=== PATIENT | female | born 1940 | race African-American/Black ===

== ENCOUNTER 2018-05-05 19:53 | Inpatient (IN) | payer MEDICARE ==
[~2018-05-05] VITALS: Ht 165.1 cm; Wt 65.8 kg
[~2018-05-05 19:53] MED LIST: AMLO1TAB5 MT; ASPI-1159 PO; ATEN50TA MT; BRIM10DR2 EACHEYE; CALC-899 MT; CHOL200074 MT; INSU100I28 SQ; INSU100V9 SQ; LACT1CAP68 MT; MELO-106 MT; MULT-1203 MT; POT CHLOR PO; RAMI5CAP13 MT; THYROXINE; TORS10TA17 MT; TRAMADOL/APAP; VITA400C19 MT; WELC MT; ZET10 MT; [UNRECOGNIZED DRUG - OTHER]; [UNRECOGNIZED DRUG - OTHER]
[2018-05-05 20:00] VITALS: BP 139/71
[2018-05-05 21:00] VITALS: BP 139/71
[2018-05-05] MEDS ORDERED: DEXTROSE 50% WATER 50ML SYRINGE IV PRN (22:00)
[2018-05-05] MEDS: INSULIN GLARGINE UD 100 UNITS/ML SYR SUBCUT SCH (23:00)
[2018-05-05] MEDS ORDERED: NA PHOS,M-B/NA PHOS,DI-BA ENEMA 118ML PR PRN (23:15)
[2018-05-05] MEDS ORDERED: ONDANSETRON HCL 4MG/2ML VIAL IV PRN (23:15)
[2018-05-05] MEDS ORDERED: IPRATROPIUM/ALBUTEROL 0.5-3(2.5)MG/3ML NEB HHN PRN (23:15)
[2018-05-06] MEDS ORDERED: RACEPINEPHRINE 2.25% 0.5ML NEB VIAL HHN PRN (01:00)
[2018-05-06] MEDS ORDERED: PHENOL/SODIUM PHENOLATE 1.4% SRPAY 177ML MM PRN (01:00)
[2018-05-06] MEDS: IPRATROPIUM/ALBUTEROL 0.5-3(2.5)MG/3ML NEB HHN SCH ×4 (01:00→20:46)
[2018-05-06] MEDS ORDERED: VANCOMYCIN 1 G PREMIX 200 ML IV SCH (04:00)
[2018-05-06] MEDS: BLOOD SUGAR DIAGNOSTIC STRIP TEST SCH ×4 (06:21→21:08)
[2018-05-06] MEDS ORDERED: CALC-899 MT (07:38)
[2018-05-06] MEDS ORDERED: LACT1CAP68 MT (07:38)
[2018-05-06] MEDS ORDERED: WELC MT (07:38)
[2018-05-06] MEDS ORDERED: TORS10TA17 PO (07:38)
[2018-05-06] MEDS ORDERED: ZET10 MT (07:38)
[2018-05-06] MEDS ORDERED: RAMI5CAP17 MT (07:38)
[2018-05-06] MEDS ORDERED: INSU100I28 SQ (07:38)
[2018-05-06] MEDS ORDERED: ATEN50TA MT (07:38)
[2018-05-06] MEDS ORDERED: BRIM10DR2 EACHEYE (07:38)
[2018-05-06] MEDS ORDERED: AMLO1TAB5 MT (07:38)
[2018-05-06] MEDS ORDERED: ASPI-1159 PO (07:38)
[2018-05-06] MEDS ORDERED: CHOL3000 PO (07:38)
[2018-05-06 07:47] LABS: BASOPHILS % 0.1 % (0.0-2.0); EOSINOPHILS % 4.4 % (0.0-5.0); HEMATOCRIT. 32.9 % (36.0-48.0); HEMOGLOBIN. 11.1 g/dL (12.0-16.0); LYMPHOCYTES % 20.1 % (20.0-50.0); MEAN CORPUSCULAR HEMOGLOBIN 30.7 pg (28.0-32.0); MEAN CORPUSCULAR VOLUME 91.3 fL (81.0-99.0); MEAN PLATELET VOLUME 8.8 fl (7.4-10.4); NEUTROPHILS % 64.4 % (40.0-76.0); PLATELET 213 x1000/uL (130-400); RED BLOOD CELL COUNT 3.61 mill/uL (4.2-5.4); RED CELL DISTRIBUTION WIDTH 13.9 % (11.6-14.6)
[2018-05-06 08:00] VITALS: BP 114/60
[2018-05-06 08:39] LABS: CHLORIDE 113 mEq/L (98-107)
[2018-05-06] MEDS: AMLODIPINE 10MG TABLET PO SCH (08:57)
[2018-05-06] MEDS ORDERED: ENOXAPARIN 40MG/0.4ML SYR SUBCUT SCH (09:00)
[2018-05-06] MEDS ORDERED: FAMOTIDINE 20MG TABLET PO SCH (09:00)
[2018-05-06 09:07] LABS: PREALBUMIN 15.2 mg/dL (20.0-40.0)
[2018-05-06] MEDS: INSULIN LISPRO 100 UNITS/ML SUBCUT SCH ×7 (09:21→22:25)
[2018-05-06] MEDS: ENOXAPARIN 40MG/0.4ML SYR SUBCUT SCH (09:50)
[2018-05-06 10:36] LABS: CLARITY URINE CLEAR (CLEAR); COLOR URINE YELLOW (YELLOW); KETONES URINE NEGATIVE (NEGATIVE); LEUKOCYTE ESTERASE URINE NEGATIVE (NEGATIVE); NITRITE URINE NEGATIVE (NEGATIVE); OCCULT BLOOD URINE 2+ (NEGATIVE); PROTEIN URINE NEGATIVE (NEGATIVE); SPECIFIC GRAVITY URINE 1.009 (1.005-1.030); UROBILINOGEN URINE 0.2 E.U./dL (0.2-1.0)
[2018-05-06 12:00] VITALS: BP 121/56
[2018-05-06] MEDS: LEVOFLOXACIN 250MG PREMIX 50 ML IV SCH (13:37)
[2018-05-06 16:00] VITALS: BP 117/54
[2018-05-06 20:00] VITALS: BP 119/65
[2018-05-06] MEDS ORDERED: INSULIN GLARGINE UD 100 UNITS/ML SYR SUBCUT SCH (22:00)
[2018-05-06] MEDS: INSULIN GLARGINE UD 100 UNITS/ML SYR SUBCUT SCH (22:24)
[2018-05-07] MEDS: IPRATROPIUM/ALBUTEROL 0.5-3(2.5)MG/3ML NEB HHN SCH ×4 (01:27→20:03)
[2018-05-07] MEDS: BLOOD SUGAR DIAGNOSTIC STRIP TEST SCH ×4 (06:21→21:00)
[2018-05-07] MEDS: INSULIN LISPRO 100 UNITS/ML SUBCUT SCH ×7 (06:29→21:00)
[2018-05-07 08:00] VITALS: BP 121/53
[2018-05-07] MEDS: VANCOMYCIN 1250MG in DEXTROSE 5% WATER 250ML IV SCH (10:30)
[2018-05-07] MEDS: ENOXAPARIN 40MG/0.4ML SYR SUBCUT SCH (10:32)
[2018-05-07] MEDS: FAMOTIDINE 20MG TABLET PO SCH (10:32)
[2018-05-07] MEDS: AMLODIPINE 10MG TABLET PO SCH (10:33)
[2018-05-07] MEDS: LEVOFLOXACIN 250MG PREMIX 50 ML IV SCH (15:20)
[2018-05-07 17:27] LABS: AMYLASE 63 IU/L (25-115)
[2018-05-07 20:13] VITALS: BP 125/68
[2018-05-07] MEDS: INSULIN GLARGINE UD 100 UNITS/ML SYR SUBCUT SCH (22:00)
[2018-05-08] MEDS: IPRATROPIUM/ALBUTEROL 0.5-3(2.5)MG/3ML NEB HHN SCH ×5 (00:16→21:17)
[2018-05-08] MEDS: VANCOMYCIN 1250MG in DEXTROSE 5% WATER 250ML IV SCH ×2 (05:40→21:59)
[2018-05-08 06:17] LABS: BASOPHILS % 0.6 % (0.0-2.0); EOSINOPHILS % 5.2 % (0.0-5.0); HEMATOCRIT. 33.3 % (36.0-48.0); HEMOGLOBIN. 11.2 g/dL (12.0-16.0); LYMPHOCYTES % 20.7 % (20.0-50.0); MEAN CORPUSCULAR HEMOGLOBIN 30.7 pg (28.0-32.0); MEAN CORPUSCULAR VOLUME 91.1 fL (81.0-99.0); NEUTROPHILS % 65.5 % (40.0-76.0); PLATELET 259 x1000/uL (130-400); RED BLOOD CELL COUNT 3.66 mill/uL (4.2-5.4); RED CELL DISTRIBUTION WIDTH 13.7 % (11.6-14.6)
[2018-05-08 06:31] LABS: CHLORIDE 110 mEq/L (98-107)
[2018-05-08 06:37] LABS: FERRITIN 177 ng/mL (10-291); PHOSPHORUS 3.2 mg/dL (2.5-4.9)
[2018-05-08 06:38] LABS: HDL CHOLESTEROL 37 mg/dL (40-59)
[2018-05-08 06:41] LABS: LDL CHOLESTEROL 137 mg/dL (5-100)
[2018-05-08 06:43] LABS: TOTAL IRON BINDING CAPACITY 188 ug/dL (250-450)
[2018-05-08 06:47] LABS: CREATINE KINASE 107 IU/L (26-192)
[2018-05-08 07:21] LABS: FOLIC ACID (FOLATE) SERUM >20 ng/mL ng/mL (>5.38)
[2018-05-08] MEDS: BLOOD SUGAR DIAGNOSTIC STRIP TEST SCH ×4 (07:28→21:36)
[2018-05-08 07:33] LABS: VITAMIN B12 SERUM 1691 pg/mL (211-911)
[2018-05-08] MEDS: AMLODIPINE 10MG TABLET PO SCH (08:23)
[2018-05-08] MEDS: FAMOTIDINE 20MG TABLET PO SCH (08:24)
[2018-05-08] MEDS: ENOXAPARIN 40MG/0.4ML SYR SUBCUT SCH (08:24)
[2018-05-08 08:27] VITALS: BP 161/78
[2018-05-08] MEDS: INSULIN LISPRO 100 UNITS/ML SUBCUT SCH ×7 (08:46→21:00)
[2018-05-08] MEDS ORDERED: BISACODYL 5MG TABLET PO PRN (11:00)
[2018-05-08] MEDS ORDERED: BISACODYL 5MG TABLET PO SCH (11:45)
[2018-05-08] MEDS: DOCUSATE SODIUM 250MG CAPSULE PO SCH (11:54)
[2018-05-08] MEDS: LEVOFLOXACIN 250MG PREMIX 50 ML IV SCH (14:34)
[2018-05-08 20:00] VITALS: BP 124/67
[2018-05-08] MEDS: INSULIN GLARGINE UD 100 UNITS/ML SYR SUBCUT SCH (21:37)
[2018-05-08] MEDS: ATORVASTATIN CALCIUM 10MG TABLET PO SCH (21:42)
[2018-05-09] MEDS: IPRATROPIUM/ALBUTEROL 0.5-3(2.5)MG/3ML NEB HHN SCH ×3 (02:31→21:12)
[2018-05-09] MEDS: BLOOD SUGAR DIAGNOSTIC STRIP TEST SCH ×4 (05:40→21:00)
[2018-05-09 06:58] LABS: T4 FREE 0.48 ng/dL (0.76-1.46)
[2018-05-09 08:38] VITALS: BP 129/62
[2018-05-09] MEDS: DOCUSATE SODIUM 250MG CAPSULE PO SCH (09:10)
[2018-05-09] MEDS: FAMOTIDINE 20MG TABLET PO SCH (09:10)
[2018-05-09] MEDS: ENOXAPARIN 40MG/0.4ML SYR SUBCUT SCH (09:10)
[2018-05-09] MEDS: AMLODIPINE 10MG TABLET PO SCH (09:10)
[2018-05-09] MEDS: INSULIN LISPRO 100 UNITS/ML SUBCUT SCH ×7 (09:12→21:00)
[2018-05-09] MEDS ORDERED: BISACODYL 5MG TABLET PO NR (17:00)
[2018-05-09] MEDS: VANCOMYCIN 1250MG in DEXTROSE 5% WATER 250ML IV SCH (17:04)
[2018-05-09 20:00] VITALS: BP 133/62
[2018-05-09] MEDS: ATORVASTATIN CALCIUM 10MG TABLET PO SCH (22:06)
[2018-05-09] MEDS: INSULIN GLARGINE UD 100 UNITS/ML SYR SUBCUT SCH (22:08)
[2018-05-10] MEDS: IPRATROPIUM/ALBUTEROL 0.5-3(2.5)MG/3ML NEB HHN SCH ×4 (01:11→20:03)
[2018-05-10] MEDS: BLOOD SUGAR DIAGNOSTIC STRIP TEST SCH ×4 (06:30→21:00)
[2018-05-10] MEDS: LEVOTHYROXINE SODIUM 75MCG TABLET PO SCH (06:31)
[2018-05-10] MEDS: INSULIN LISPRO 100 UNITS/ML SUBCUT SCH ×6 (07:00→19:03)
[2018-05-10 08:00] VITALS: BP 139/69
[2018-05-10] MEDS: DOCUSATE SODIUM 250MG CAPSULE PO SCH (08:45)
[2018-05-10] MEDS: FAMOTIDINE 20MG TABLET PO SCH (08:45)
[2018-05-10] MEDS: AMLODIPINE 10MG TABLET PO SCH (08:45)
[2018-05-10] MEDS: ENOXAPARIN 40MG/0.4ML SYR SUBCUT SCH (08:46)
[2018-05-10 20:00] VITALS: BP 144/60
[2018-05-10] MEDS: ATORVASTATIN CALCIUM 10MG TABLET PO SCH (22:09)
[2018-05-10] MEDS: INSULIN GLARGINE UD 100 UNITS/ML SYR SUBCUT SCH (22:18)
[2018-05-11] MEDS: IPRATROPIUM/ALBUTEROL 0.5-3(2.5)MG/3ML NEB HHN SCH ×4 (01:09→20:35)
[2018-05-11] MEDS: LEVOTHYROXINE SODIUM 75MCG TABLET PO SCH (06:12)
[2018-05-11] MEDS: BLOOD SUGAR DIAGNOSTIC STRIP TEST SCH ×4 (06:16→21:54)
[2018-05-11] MEDS: INSULIN LISPRO 100 UNITS/ML SUBCUT SCH ×7 (06:42→18:08)
[2018-05-11 06:59] LABS: BASOPHILS % 1.3 % (0.0-2.0); EOSINOPHILS % 3.9 % (0.0-5.0); HEMOGLOBIN. 10.5 g/dL (12.0-16.0); LYMPHOCYTES % 25.6 % (20.0-50.0); MEAN CORPUSCULAR HEMOGLOBIN 30.9 pg (28.0-32.0); MEAN CORPUSCULAR VOLUME 91.4 fL (81.0-99.0); MONOCYTES % 14.9 % (2.0-8.0); NEUTROPHILS % 54.3 % (40.0-76.0); PLATELET 265 x1000/uL (130-400); RED BLOOD CELL COUNT 3.39 mill/uL (4.2-5.4); RED CELL DISTRIBUTION WIDTH 13.8 % (11.6-14.6)
[2018-05-11 07:04] LABS: CHLORIDE 111 mEq/L (98-107)
[2018-05-11 08:00] VITALS: BP 131/60
[2018-05-11] MEDS: DOCUSATE SODIUM 250MG CAPSULE PO SCH (08:32)
[2018-05-11] MEDS: FAMOTIDINE 20MG TABLET PO SCH ×2 (08:33→21:46)
[2018-05-11] MEDS: AMLODIPINE 10MG TABLET PO SCH (08:33)
[2018-05-11] MEDS: ENOXAPARIN 40MG/0.4ML SYR SUBCUT SCH (08:35)
[2018-05-11 13:06] LABS: 25-HYDROXY VITAMIN D3 33 ng/mL (.)
[2018-05-11 20:06] VITALS: BP 119/62
[2018-05-11] MEDS: ACETYLCYSTEINE 100MG/ML 10% VIAL 4ML INH SCH (20:35)
[2018-05-11] MEDS: ATORVASTATIN CALCIUM 10MG TABLET PO SCH (21:46)
[2018-05-11] MEDS: INSULIN GLARGINE UD 100 UNITS/ML SYR SUBCUT SCH (22:01)
[2018-05-12] MEDS: IPRATROPIUM/ALBUTEROL 0.5-3(2.5)MG/3ML NEB HHN SCH ×4 (01:33→21:15)
[2018-05-12] MEDS: ACETYLCYSTEINE 100MG/ML 10% VIAL 4ML INH SCH (01:34)
[2018-05-12] MEDS: LEVOTHYROXINE SODIUM 75MCG TABLET PO SCH (06:27)
[2018-05-12] MEDS: BLOOD SUGAR DIAGNOSTIC STRIP TEST SCH ×4 (06:31→21:00)
[2018-05-12 08:00] VITALS: BP 155/76
[2018-05-12] MEDS: ENOXAPARIN 40MG/0.4ML SYR SUBCUT SCH (08:06)
[2018-05-12] MEDS: DOCUSATE SODIUM 250MG CAPSULE PO SCH (08:07)
[2018-05-12] MEDS: AMLODIPINE 10MG TABLET PO SCH (08:07)
[2018-05-12] MEDS: INSULIN LISPRO 100 UNITS/ML SUBCUT SCH ×6 (08:08→17:48)
[2018-05-12 20:00] VITALS: BP 121/70
[2018-05-12] MEDS: INSULIN GLARGINE UD 100 UNITS/ML SYR SUBCUT SCH (22:00)
[2018-05-12] MEDS: FAMOTIDINE 20MG TABLET PO SCH (22:18)
[2018-05-12] MEDS: ATORVASTATIN CALCIUM 10MG TABLET PO SCH (22:19)
[2018-05-12] MEDS ORDERED: INSULIN GLARGINE UD 100 UNITS/ML SYR SUBCUT NR (22:30)
[2018-05-13] MEDS: IPRATROPIUM/ALBUTEROL 0.5-3(2.5)MG/3ML NEB HHN SCH ×4 (02:41→21:36)
[2018-05-13] MEDS: ACETYLCYSTEINE 100MG/ML 10% VIAL 4ML INH SCH ×3 (02:42→14:24)
[2018-05-13 05:58] LABS: MEAN CORPUSCULAR HEMOGLOBIN 30.6 pg (28.0-32.0); MEAN CORPUSCULAR VOLUME 91.6 fL (81.0-99.0); MEAN PLATELET VOLUME 9.2 fl (7.4-10.4); PLATELET 277 x1000/uL (130-400); RED BLOOD CELL COUNT 3.28 mill/uL (4.2-5.4)
[2018-05-13] MEDS: BLOOD SUGAR DIAGNOSTIC STRIP TEST SCH ×4 (06:11→21:22)
[2018-05-13] MEDS: INSULIN LISPRO 100 UNITS/ML SUBCUT SCH ×6 (06:11→17:45)
[2018-05-13] MEDS: LEVOTHYROXINE SODIUM 75MCG TABLET PO SCH (06:11)
[2018-05-13 06:39] LABS: CHLORIDE 113 mEq/L (98-107)
[2018-05-13 07:37] VITALS: BP 117/50
[2018-05-13] MEDS: DOCUSATE SODIUM 250MG CAPSULE PO SCH (08:20)
[2018-05-13] MEDS: AMLODIPINE 10MG TABLET PO SCH (08:20)
[2018-05-13] MEDS: ENOXAPARIN 40MG/0.4ML SYR SUBCUT SCH (08:21)
[2018-05-13 08:32] LABS: PLATELET ESTIMATE NORMAL
[2018-05-13] MEDS ORDERED: POTASSIUM CHLORIDE 20MEQ TABLET SR PO NR (10:45)
[2018-05-13 20:00] VITALS: BP 126/53
[2018-05-13] MEDS: FAMOTIDINE 20MG TABLET PO SCH (20:46)
[2018-05-13] MEDS: ATORVASTATIN CALCIUM 10MG TABLET PO SCH (20:46)
[2018-05-13] MEDS ORDERED: INSULIN GLARGINE UD 100 UNITS/ML SYR SUBCUT SCH (22:00)
[2018-05-14] MEDS: IPRATROPIUM/ALBUTEROL 0.5-3(2.5)MG/3ML NEB HHN SCH ×3 (03:23→21:34)
[2018-05-14] MEDS: INSULIN LISPRO 100 UNITS/ML SUBCUT SCH ×6 (06:23→18:07)
[2018-05-14] MEDS: LEVOTHYROXINE SODIUM 75MCG TABLET PO SCH (06:23)
[2018-05-14] MEDS: BLOOD SUGAR DIAGNOSTIC STRIP TEST SCH ×4 (06:23→21:12)
[2018-05-14 08:00] VITALS: BP 127/63
[2018-05-14 09:04] LABS: BASOPHILS % 1.4 % (0.0-2.0); EOSINOPHILS % 4.2 % (0.0-5.0); HEMATOCRIT. 33.4 % (36.0-48.0); HEMOGLOBIN. 11.1 g/dL (12.0-16.0); LYMPHOCYTES % 26.3 % (20.0-50.0); MEAN CORPUSCULAR HEMOGLOBIN 30.7 pg (28.0-32.0); MEAN CORPUSCULAR VOLUME 92.4 fL (81.0-99.0); MEAN PLATELET VOLUME 9.2 fl (7.4-10.4); MONOCYTES % 14.4 % (2.0-8.0); NEUTROPHILS % 53.7 % (40.0-76.0); PLATELET 318 x1000/uL (130-400); RED BLOOD CELL COUNT 3.62 mill/uL (4.2-5.4); RED CELL DISTRIBUTION WIDTH 14.3 % (11.6-14.6)
[2018-05-14 09:07] LABS: CHLORIDE 112 mEq/L (98-107)
[2018-05-14] MEDS: ENOXAPARIN 40MG/0.4ML SYR SUBCUT SCH (09:32)
[2018-05-14] MEDS: DOCUSATE SODIUM 250MG CAPSULE PO SCH (09:32)
[2018-05-14] MEDS: AMLODIPINE 10MG TABLET PO SCH (09:33)
[2018-05-14 20:00] VITALS: BP 126/57
[2018-05-14] MEDS: ATORVASTATIN CALCIUM 10MG TABLET PO SCH (20:30)
[2018-05-14] MEDS: FAMOTIDINE 20MG TABLET PO SCH (20:30)
[2018-05-14] MEDS: INSULIN GLARGINE UD 100 UNITS/ML SYR SUBCUT SCH (21:15)
[2018-05-15] MEDS: LEVOTHYROXINE SODIUM 75MCG TABLET PO SCH (06:09)
[2018-05-15] MEDS: INSULIN LISPRO 100 UNITS/ML SUBCUT SCH ×6 (06:12→18:17)
[2018-05-15] MEDS: BLOOD SUGAR DIAGNOSTIC STRIP TEST SCH ×4 (06:12→21:56)
[2018-05-15 08:00] VITALS: BP 132/61
[2018-05-15] MEDS: ENOXAPARIN 40MG/0.4ML SYR SUBCUT SCH (09:13)
[2018-05-15] MEDS: AMLODIPINE 10MG TABLET PO SCH (09:14)
[2018-05-15] MEDS: DOCUSATE SODIUM 250MG CAPSULE PO SCH (09:14)
[2018-05-15] MEDS: IPRATROPIUM/ALBUTEROL 0.5-3(2.5)MG/3ML NEB HHN SCH ×3 (09:45→21:14)
[2018-05-15] MEDS: ACETYLCYSTEINE 100MG/ML 10% VIAL 4ML INH SCH ×2 (09:46→17:29)
[2018-05-15 20:00] VITALS: BP 128/45
[2018-05-15] MEDS: ATORVASTATIN CALCIUM 10MG TABLET PO SCH (21:55)
[2018-05-15] MEDS: FAMOTIDINE 20MG TABLET PO SCH (21:56)
[2018-05-15] MEDS: INSULIN GLARGINE UD 100 UNITS/ML SYR SUBCUT SCH (22:18)
[2018-05-16] MEDS: BLOOD SUGAR DIAGNOSTIC STRIP TEST SCH ×4 (06:49→21:17)
[2018-05-16] MEDS: LEVOTHYROXINE SODIUM 75MCG TABLET PO SCH (06:49)
[2018-05-16] MEDS: INSULIN LISPRO 100 UNITS/ML SUBCUT SCH ×6 (06:53→17:19)
[2018-05-16 08:00] VITALS: BP 136/69
[2018-05-16] MEDS: AMLODIPINE 10MG TABLET PO SCH (08:16)
[2018-05-16] MEDS: DOCUSATE SODIUM 250MG CAPSULE PO SCH (08:16)
[2018-05-16] MEDS: ENOXAPARIN 40MG/0.4ML SYR SUBCUT SCH (08:17)
[2018-05-16] MEDS: IPRATROPIUM/ALBUTEROL 0.5-3(2.5)MG/3ML NEB HHN SCH ×4 (08:50→19:59)
[2018-05-16] MEDS: ACETYLCYSTEINE 100MG/ML 10% VIAL 4ML INH SCH ×2 (08:50→15:18)
[2018-05-16 20:00] VITALS: BP 126/62
[2018-05-16] MEDS: ATORVASTATIN CALCIUM 10MG TABLET PO SCH (20:40)
[2018-05-16] MEDS: FAMOTIDINE 20MG TABLET PO SCH (20:40)
[2018-05-16] MEDS: INSULIN GLARGINE UD 100 UNITS/ML SYR SUBCUT SCH (21:32)
[2018-05-17] MEDS: IPRATROPIUM/ALBUTEROL 0.5-3(2.5)MG/3ML NEB HHN SCH ×3 (01:30→14:42)
[2018-05-17] MEDS: INSULIN LISPRO 100 UNITS/ML SUBCUT SCH ×4 (06:14→12:45)
[2018-05-17] MEDS: BLOOD SUGAR DIAGNOSTIC STRIP TEST SCH ×2 (06:14→11:29)
[2018-05-17] MEDS: LEVOTHYROXINE SODIUM 75MCG TABLET PO SCH (06:14)
[2018-05-17 08:00] VITALS: BP 141/69
[2018-05-17] MEDS: DOCUSATE SODIUM 250MG CAPSULE PO SCH (08:02)
[2018-05-17] MEDS: AMLODIPINE 10MG TABLET PO SCH (08:03)
[2018-05-17] MEDS ORDERED: ENOXAPARIN 40MG/0.4ML SYR SUBCUT SCH (09:00)
[2018-05-17 11:02] VITALS: BP 141/69
== END 2018-05-17 15:38 | disposition home or self-care (01) | DRG 91 ==
PROVIDERS: ADMIT Physical Medicine & Rehabilitation Spinal Cord Injury Medicine; ATTEND Hospitalist
DX: G92 Toxic encephalopathy (principal); J18.9 Pneumonia, unspecified organism; J96.00 Acute respiratory failure, unspecified whether with hypoxia or hypercapnia; A41.9 Sepsis, unspecified organism; I21.9 Acute myocardial infarction, unspecified; E46 Unspecified protein-calorie malnutrition; E87.0 Hyperosmolality and hypernatremia; J98.11 Atelectasis; J90 Pleural effusion, not elsewhere classified; I10 Essential (primary) hypertension; E78.5 Hyperlipidemia, unspecified; E11.649 Type 2 diabetes mellitus with hypoglycemia without coma; I25.10 Atherosclerotic heart disease of native coronary artery without angina pectoris; E11.42 Type 2 diabetes mellitus with diabetic polyneuropathy; H40.9 Unspecified glaucoma; R53.81 Other malaise; R49.0 Dysphonia; R13.10 Dysphagia, unspecified; M75.00 Adhesive capsulitis of unspecified shoulder; M79.609 Pain in unspecified limb; D64.9 Anemia, unspecified; E78.00 Pure hypercholesterolemia, unspecified; R26.9 Unspecified abnormalities of gait and mobility; R20.0 Anesthesia of skin; R79.89 Other specified abnormal findings of blood chemistry; R10.30 Lower abdominal pain, unspecified; E03.9 Hypothyroidism, unspecified; M41.85 Other forms of scoliosis, thoracolumbar region; R94.5 Abnormal results of liver function studies; M77.9 Enthesopathy, unspecified; M19.90 Unspecified osteoarthritis, unspecified site; J38.6 Stenosis of larynx; F32.9 Major depressive disorder, single episode, unspecified; K59.00 Constipation, unspecified; Z95.1 Presence of aortocoronary bypass graft; Z88.0 Allergy status to penicillin; Z95.5 Presence of coronary angioplasty implant and graft; Z68.24 Body mass index [BMI] 24.0-24.9, adult; I25.2 Old myocardial infarction; Z79.899 Other long term (current) drug therapy; Z79.82 Long term (current) use of aspirin; Z79.4 Long term (current) use of insulin; Z87.891 Personal history of nicotine dependence
CPT/HCPCS: 36415; 70490; 71250; 74018; 80048; 80053; 80061; 80202; 81003; 82150; 82270; 82306; 82550; 82607; 82728; 82746; 82962; 83036; 83540; 83550; 83690; 83735; 84100; 84134; 84439; 84443; 84481; 84630; 84681; 85025; 87086; 92523; 92610; 93970; 94640; 97110; 97112; 97116; 97150; 97162; 97167; 97530; 97535; A6261; G0515; J1650; J1815; J1956; J3370; J7040; J7060; J7608; J7620; A5200